=== PATIENT | male | born 2000 | race Caucasian/White ===

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

== ENCOUNTER → 2023-06-13 08:10 | Outpatient (BNVA) | payer SELFPAY | PROVIDERS: PCP Pediatrics | DX: Z04.9 Encounter for examination and observation for unspecified reason (principal) ==